=== PATIENT | male | born 1965 | race Caucasian/White ===

== ENCOUNTER 2016-11-18 15:46 | Emergency (ER) | payer OTHER ==
[~2016-11-18] VITALS: Ht 188 cm; Wt 90.7 kg
[2016-11-18 16:06] VITALS: BP 100/70
[2016-11-18] MEDS ORDERED: TRUVADA 200 MG1 EACH PO (16:19)
[2016-11-18] MEDS ORDERED: TIVICAY50 M1 PO (16:19)
[2016-11-18] MEDS ORDERED: OXYCODONE HCL15 M1 PO (16:20)
[2016-11-18] MEDS ORDERED: BUTRANS1 EAC2 TOP (16:21)
[2016-11-18] MEDS ORDERED: PROVENTIL HFA6.7 GM INH (16:22)
--- NOTE | 2016-11-18 16:23 | ED GENERAL ADULT ---
History of Present Illness General Chief Complaint: Chest Pain Stated Complaint: CP Source: patient Exam Limitations: no limitations Vital Signs & Intake/Output Vital Signs & Intake/Output Vital Signs Date Time Temp Pulse Resp B/P B/P Pulse O2 O2 Flow FiO2 Mean Ox Delivery Rate 11/18 1623 93 Room Air 11/18 1606 97.2 86 20 100/70 93 Room Air Allergies Coded Allergies: No Known Allergies (11/18/16) Reconcile Medications Albuterol Sulfate (Proventil Hfa) 90 MCG HFA.AER.AD 2 PUF INH Q6-PRN PRN SHORTNESS OF BREATH (Reported) Buprenorphine (Butrans) 20 MCG/HOUR PATCH.TDWK 1 PAT TOP QW PAIN CONTROL ( Reported) Dolutegravir Sodium (Tivicay) 50 MG TABLET 1 TAB PO D ANTIVIRAL (Reported) Emtricitabine/Tenofovir (Truvada 200 MG-300 MG Tablet) 200 MG-300 MG TABLET 1 TAB PO DAILY ANTIVIRAL (Reported) Oxycodone HCl 15 MG TABLET 1 TAB PO Q6P PAIN CONTROL (Reported) Triage Note: PT TO ED FOR CHEST PAIN WORSENING OVER THE PAST WEEK, REPORTING CHEST PAIN IS WORSE WITH ANY ACTIVTY AND RESOLVES WITH REST. PT ALSO REPORTING ASSOCIATED SOB AND PALPITATIONS. PT REPORTING "SOMETHING IS WRONG I CAN TELL SOMETHING JUST ISN'T RIGHT" Triage Nurses Notes Reviewed? yes Onset: Abrupt Duration: day(s): Timing: recent history HPI: 11/18/16 4:19 PM 51-year-old man presents to the emergency department complaining of exertional chest pain and difficulty breathing. Over the past week he's had severe difficulty breathing and chest pain with only minimal exertion. Currently he has 4-5 out of 10 chest pain now. This is at rest; on oxygen. The onset of the symptoms were abrupt, the duration has been the past week, the severity significant is his symptoms required him to come to the emergency department for care. Past History Travel History Traveled to [place] past 21 day No Medical History Any Pertinent Medical History? see below for history Musculoskeletal: CHRONIC BACK PAIN Blood Disorders: HIV Cancer(s): NONE Surgical History Surgical History: knee , back Psychosocial History What is your primary language Urdu Tobacco Use: Current Daily Use Daily Tobacco Use Amount/Type: => 5 Cigarettes daily ETOH Use: denies use Illicit Drug Use: denies illicit drug use Family History Hx Contributory? No Review of Systems Review of Systems Constitutional: Denies: fever. EENTM: Reports: no symptoms. Respiratory: Reports: short of breath. Cardiovascular: Reports: chest pain. GI: Denies: abdominal pain. Genitourinary: Reports: no symptoms. Musculoskeletal: Reports: no symptoms. Skin: Denies: rash. Neurological/Psychological: Reports: no symptoms. Hematologic/Endocrine: Reports: no symptoms. Immunologic/Allergic: Reports: no symptoms. Physical Exam Physical Exam General Appearance: alert, awake, anxious, moderate distress Head: atraumatic, normal appearance Eyes: Bilateral: normal appearance, PERRL, EOMI. Ears, Nose, Throat: normal pharynx Neck: normal inspection Respiratory: normal breath sounds, chest non-tender, no respiratory distress Cardiovascular: regular rate/rhythm Peripheral Pulses: 4+ radial (R), 4+ radial (L) Gastrointestinal: non-tender Back: decreased range of motion Extremities: no edema Neurologic/Psych: no motor/sensory deficits, awake, alert, oriented x 3 Skin: intact Core Measures ACS in differential dx? Yes CVA/TIA Diagnosis: No Severe Sepsis Present: No Septic Shock Present: No Progress Differential Diagnoses I considered the following diagnoses in my evaluation of the patient: [Acute coronary syndrome, pulmonary embolism, pneumothorax, myocarditis,] Plan of Care: Orders Procedure Date/time Status Add-on Test (ER Only) 11/18 1616 Active PARTIAL THROMBOPLASTIN TIME 11/18 1612 Active PROTHROMBIN TIME 11/18 1612 Active MAGNESIUM 11/18 1612 Active TROPONIN LEVEL 11/18 1610 Active COMPREHENSIVE METABOLIC PANEL 11/18 1610 Active CBC WITHOUT DIFFERENTIAL 11/18 1610 Complete EKG 11/18 1547 Active Laboratory Tests 11/18/16 1612: Sodium Pending, Potassium Pending, Chloride Pending, Carbon Dioxide Pending, Anion Gap Pending, BUN Pending, Creatinine Pending, BUN/Creatinine Ratio Pending , Glucose Pending, Calcium Pending, Magnesium Pending, Total Bilirubin Pending, AST Pending, ALT Pending, Alkaline Phosphatase Pending, Troponin I Pending, Total Protein Pending, Albumin Pending, Globulin Pending, Albumin/Globulin Ratio Pending, PT Pending, INR Pending, APTT Pending, CBC w Diff NO MAN DIFF REQ, RBC 4.59 L, MCV 96.1 H, MCH 32.3 H, RDW 13.9, MPV 8.7, Gran % 84.1 H, Lymphocytes % 11.2 L, Monocytes % 4.7, Eosinophils % 0, Basophils % 0 L, Absolute Granulocytes 11.9 H, Absolute Lymphocytes 1.6, Absolute Monocytes 0.7 H, Absolute Eosinophils 0, Absolute Basophils 0, PUBS MCHC 33.6 Initial ED EKG: ST elevation Departure Departure Disposition: STILL A PATIENT Condition: Stable Clinical Impression Primary Impression: Chest pain Referrals: CARMELO WILDER,ALBERT Avila (PCP/Family) Departure Forms: Customer Survey General Discharge Information Comments EKG shows anterior ST segment elevation with some minimal ST depression in the inferior leads. He was emergently transferred to [facility] for cardiac catheterization. Critical Care Note Critical Care Note Critical Care Time: 30-74 min
[2016-11-18 16:39] LABS: ABSOLUTE BASOPHIL COUNT 0 /CUMM (0.0-0.2); ABSOLUTE EOSINOPHIL COUNT 0 /CUMM (0.0-0.7); ABSOLUTE GRANULOCYTE CT 11.9 /CUMM (1.4-6.5); ABSOLUTE LYMPH COUNT 1.6 /CUMM (1.2-3.4); ABSOLUTE MONOCYTE COUNT 0.7 /CUMM (0.10-0.60); BASOPHIL % 0 % (0.0-2.0); EOSINOPHIL % 0 % (0-5); GRANULOCYTE % 84.1 % (42.2-75.2); HEMATOCRIT 44.1 % (42-52); MEAN CORPUSCULAR HGB 32.3 PG (27.0-31.0); MEAN CORPUSCULAR HGB CONC 33.6 G/DL (33.0-37.0); MEAN CORPUSCULAR VOLUME 96.1 FL (80.0-94.0); MEAN PLATELET VOLUME 8.7 FL (7.4-10.4); RBC DISTRIBUTION WIDTH 13.9 % (11.5-14.5); RED BLOOD CELL CT 4.59 /CUMM (4.70-6.10); WHITE BLOOD CELL COUNT 14.2 /CUMM (4.8-10.8)
[2016-11-18 16:43] LABS: PLATELET COUNT 95 /CUMM (130-400)
[2016-11-18 16:48] LABS: PT 11.9 SEC (9.4-12.5); PTT 31 SEC (25-37)
== END 2016-11-18 16:33 | disposition short-term general hospital (02) ==
LOC: ERH 15:46
PROVIDERS: Emergency Medicine
DX: R07.9 Chest pain, unspecified (principal)
CPT/HCPCS: 93005; 93010; 96374; 99291; J1644; J3490